=== PATIENT | male | born 1975 | race Two or more races ===

== ENCOUNTER 2017-12-02 05:13 | Day surgery (SDC) | payer OTHER ==
[2017-12-02] VITALS (13 sets, daily range): BP systolic 90–109; BP diastolic 47–71
[~2017-12-02] VITALS: Ht 182.9 cm; Wt 80.3 kg
[~2017-12-02 05:13] MED LIST: FISH OIL CAP1000 MG ORAL; GARLIC1 EAC1 PO; MULTIVITAMINS1 EAC2 ORAL; TRUVADA 200 MG1 EAC1 ORAL; [UNRECOGNIZED DRUG - REMARK]
[2017-12-02] MEDS ORDERED: ceFAZolin 1gm in D5W 55ml IVP ONE (06:00)
[2017-12-02] MEDS ORDERED: celeBREX 200mg Cap **SURGERY PATIENTS ONLY ORAL ONE (06:00)
[2017-12-02] MEDS ORDERED: oxyCONTIN 20mg tab ORAL ONE (06:00)
[2017-12-02] MEDS ORDERED: Ropivacaine 5mg/ml Vial 30ml INJ ONE (06:38)
--- NOTE | 2017-12-02 06:54 | Pre-Procedure Note/Attestation ---
Pre-Procedure Note/Attestation Complete Prior to Procedure Planned Procedure: left Procedure Narrative: left shoulder scope, sad, tiny august Indications for Procedure Pre-Operative Diagnosis: left shoulder impingement Attestation I attest that I discussed the nature of the procedure; its benefits; risks and complications; and alternatives (and the risks and benefits of such alternatives ), prior to the procedure, with the patient (or the patient's legal sales representative supervisor). I attest that, if there was a reasonable possibility of needing a blood transfusion, the patient (or the patient's legal sales representative supervisor) was given the [facility] standardized written summary, pursuant to the [place] Blood Safety Act ([place] Health and Safety Code # 1645, as amended). I attest that I re-evaluated the patient just prior to the surgery and that there has been no change in the patient's H&P, except as documented below:none GIA MANCERA Dec 02, 2017 06:54
[2017-12-02] MEDS ORDERED: Ketorolac 30mg Inj ONE (07:00)
[2017-12-02] MEDS ORDERED: Midazolam 2mg/2ml Inj ONE (07:00)
[2017-12-02] MEDS ORDERED: Glycopyrrolate 0.2mg/ml 1ml Vial ONE (07:00)
[2017-12-02] MEDS ORDERED: fentaNYL 100 mcg/2 mL IV ONE (07:00)
[2017-12-02] MEDS ORDERED: NS Irrig 4000ml IRRIG ONE (07:00)
[2017-12-02] MEDS ORDERED: Propofol 200mg/20ml IV ONE (07:00)
[2017-12-02] MEDS ORDERED: Sterile Water Irrig 1000ml IRRIG ONE (07:00)
[2017-12-02] MEDS ORDERED: Zemuron 50mg/5ml Inj IV ONE (07:00)
[2017-12-02] MEDS ORDERED: Succinylcholine 20mg/ml 10ml vial ONE (07:00)
[2017-12-02] MEDS ORDERED: LR 1000ml ONE (07:00)
[2017-12-02] MEDS ORDERED: Lidocaine 1% MPF 10mg/ml 5ml ONE (07:00)
[2017-12-02] MEDS ORDERED: LR 1000ml 1,000 ML IVLG SCH (08:13)
--- NOTE | 2017-12-02 08:13 | Anethesia Preoperative Eval ---
Anesthesia Pre-op PMH/ROS General Date of Evaluation: Dec 02, 2017 Time of Evaluation: 07:02 Anesthesiologist: Boom ASA Score: ASA 2 Mallampati Score Class I : Soft palate, uvula, fauces, pillars visible Class II: Soft palate, uvula, fauces visible Class III: Soft palate, base of uvula visible Class IV: Only hard plate visible Mallampati Classification: Class II Surgeon: Georgette Diagnosis: L shoulder pain Surgical Procedure: L shoulder scope Anesthesia History: none Family History: no anesthesia problems Allergies: Coded Allergies: No Known Allergies (Unverified , 11/27/17) Medications: see eMAR Past Medical History Cardiovascular: Denies: HTN, CAD, MS, valve dz, arrhythmia, other Pulmonary: Denies: asthma, COPD, [place], other Gastrointestinal/Genitourinary: Reports: GERD - mild, Denies: CRI, ESRD, other Neurologic/Psychiatric: Denies: dementia, CVA, depression/anxiety, TIA, other Endocrine: Denies: DM, hypothyroidism, steroids, other HEENT: Denies: cataract (L), cataract (R), glaucoma, [place] (L), [place] (R), other Hematology/Immune: Denies: anemia, DVT, bleeding disorder, other Musculoskeletal/Integumentary: Denies: OA, RA, DJD, DDD, edema, other PMH Narrative: as above PSxH Narrative: septoplasty Anesthesia Pre-op Phys. Exam Physician Exam Last Vital Signs Date Time Temp Pulse Resp B/P (MAP) Pulse Ox O2 Delivery O2 Flow Rate FiO2 18 05:55 97.1 61 18 106/61 100 Room Air Constitutional: NAD Neurologic: CN 2-12 intact Cardiovascular: RRR, no M/R/G Respiratory: CTA Gastrointestinal: S/NT/ND Airway Exam Mallampati Score: Class II MO: full Neck: flexible ROM: full Teeth: intact Dentures: no upper, no lower Anesthesia Pre-op A/P Labs see chart Studies Pre-op Studies: EKG - NSR Risk Assessment & Plan Assessment: ASA 2 Plan: GA with ETT L brachial plexus block for postoperative pain control Status Change Before Surgery: No Pre-Antibiotics Drug: Ancef 2 gr. Given Within 1 Hr of Incision: Yes Time Given: 07:34 CHICA NIX M.D. Dec 02, 2017 08:13
[2017-12-02] MEDS ORDERED: Midazolam 2mg/2ml Inj IVP PRN (08:15)
[2017-12-02] MEDS ORDERED: Metoclopramide 10mg/2ml Inj IVP PRN (08:15)
[2017-12-02] MEDS ORDERED: Ketorolac 30mg Inj IV PRN (08:15)
[2017-12-02] MEDS ORDERED: Hydromorphone 0.5mg/0.5ml inj IVP PRN (08:15)
[2017-12-02] MEDS ORDERED: Meperidine 50mg/ml Inj(FOR RIGORS ONLY) IV PRN (08:15)
[2017-12-02] MEDS ORDERED: DiphenhydrAMINE 50mg/ml Inj IVP PRN (08:15)
--- NOTE | 2017-12-02 08:50 | Brief Operative Note ---
Immediate Post Operative Note Operative Note Chief Complaint: left shoulder impingement Pre-op Diagnosis: left shoulder impingement Procedure: left shoulder scope, labral repair, sad, mini mariangel Post-op Diagnosis: same as pre-op Findings: consistent w/pre-op dx studies Surgeon: md kaitlyn Pattern Maker: justice mitchell Anesthesiologist: md shana Anesthesia: general, regional Specimen: none Complications: none Condition: stable Fluids: ns Estimated Blood Loss: minimal Drains: none Implant(s) used?: Yes EARLENE MITCHELL Dec 02, 2017 08:50
--- NOTE | 2017-12-02 09:09 | Immediate Post-Op Evaluation ---
Immediate Post-Op Evalulation Immediate Post-Op Evalulation Procedure: L shoulder scope labrum repair Date of Evaluation: Dec 02, 2017 Time of Evaluation: 09:08 IV Fluids: 1000 Blood Products: none Estimated Blood Loss: min Urinary Output: none Blood Pressure Systolic: 94 Blood Pressure Diastolic: 56 Pulse Rate: 49 Respiratory Rate: 20 O2 Sat by Pulse Oximetry: 99 Temperature (Fahrenheit): 97.6 Pain Score (1-10): 1 Nausea: No Vomiting: No Complications none Patient Status: reacts, patent, extubated, none Hydration Status: adequate CHICA NIX M.D. Dec 02, 2017 09:09
--- NOTE | 2017-12-02 11:01 | 48 Hour Post Anesthesia Eval ---
Post Anesthesia Evaluation Procedure: L shoulder scope labrum repair Date of Evaluation: Dec 02, 2017 Time of Evaluation: 10:59 Blood Pressure Systolic: 108 0: 56 Pulse Rate: 72 Respiratory Rate: 20 Temperature (Fahrenheit): 97.6 O2 Sat by Pulse Oximetry: 98 Airway: patent Nausea: No Vomiting: No Pain Intensity: 2 Hydration Status: adequate Cardiopulmonary Status: stable Mental Status/LOC: patient returned to baseline Follow-up Care/Observations: n/a Post-Anesthesia Complications: none Follow-up care needed: ready to discharge CHICA NIX M.D. Dec 02, 2017 11:01
[2017-12-02] MEDS ORDERED: Tylenol #3 tab (300mg/30mg) ORAL PRN (15:01)
[2017-12-02] MEDS ORDERED: Norco 5mg/325mg tab ORAL PRN (15:01)
[2017-12-02] MEDS ORDERED: Hydromorphone 0.5mg/0.5ml inj SUBQ PRN (15:01)
[2017-12-02] MEDS ORDERED: D5 1/2NS 1,000 ML IV SCH (15:01)
--- NOTE | 2017-12-02 17:15 | Operative Note - Dictated ---
DATE OF OPERATION: 12/02/2016 PREOPERATIVE DIAGNOSES: 1. Left shoulder subacromial impingement. 2. Left shoulder acromioclavicular joint bone spur causing secondary impingement. POSTOPERATIVE DIAGNOSES: 1. Left shoulder 1 x 1.5 cm of full-thickness chondral damage on the central portion of the humeral head with exposed bone with unstable chondral edges. 2. Multiple loose fragments, left shoulder, measuring 5 to 7 mm. 3. Left shoulder anterior labral tearing measuring 1.5 cm, unstable, with some secondary instability. 4. Left shoulder subacromial impingement. 5. Left shoulder acromioclavicular joint bone spur causing secondary impingement. PROCEDURES: 1. Left shoulder arthroscopy and extensive intra-articular shaving. 2. Left shoulder with resection of multiple loose fragments of cartilage floating around the shoulder measuring 5 to 7 mm. 3. Left shoulder humeral head chondroplasty with abrasion chondroplasty to create bleeding surfaces. 4. Left shoulder anterior inferior labral repair using single Biomet 1.5 mm JuggerKnot anchor. 5. Left shoulder subacromial bursoscopy with bursectomy and subacromial decompression. 6. Left shoulder mini Inocente procedure (resection of inferior 30% of distal clavicle for coplaning). SURGEON: Lakhwinder Banerjee M.D. AGRICULTURAL AND FORESTRY SUPERVISOR: Chari Lopez PA-C Tarper was present during the actual operative portion of the case and was important and essential part of the operation. During the operation, the assistant speech language pathologist held and operated the arthroscopic camera for visualization, assisted by manipulating the arm to help with visualization, and helped with essential parts of the repair process as necessary such as operating surgical instruments under surgeon supervision, suture management, and wound closures. ANESTHESIOLOGIST: Siva Nur M.D. ANESTHESIA: General LMA anesthesia. EBL: Less than 20 mL. COMPLICATIONS: None. SURGICAL INDICATION: Patient is a 42-year-old male who sustained the above injury to his. The patient was treated non-operative initially, but this did not alleviate the patients symptoms. Therefore, after discussing all non-surgical and surgical options, and discussing all foreseeable risk and benefits of surgery, the patient opted for surgical treatment as described above. PATIENT POSITIONING: Patient was brought to the operating room table and was placed on the operating room table. All pressure points were well padded. General anesthesia was induced and patient was then placed in the lateral decubitus position. All pressure points were well padded again and an axillary roll was placed. Patient shoulder was then prepped and draped in the usual sterile fashion. Time out was performed and the appropriate preoperative antibiotic was given by the anesthesiologist. EXAMINATION OF SHOULDER UNDER ANESTHESIA: The shoulder was examined under anesthesia with all muscles well relaxed. The shoulder was forward flexed, abducted and was placed through full range of external and internal rotation. The anterior, posterior, and inferior stability of the shoulder was checked. The exam revealed no evidence of adhesive capsulitis. There was some mild instability anterior inferiorly. PORTAL PLACEMENT: The posterior portal was established 2 cm inferior and 1 cm medial to the edge of the posterior acromion. 1 cm skin incision was made using an eleven blade and using the blunt obturator, the cannula was gently placed through the capsule. The midglenoid portal was established just lateral to the coracoid process under direct visualization. Direction of the cannula was first established using a spinal needle, and subsequently, the cannula was placed through the capsule with a blunt obturator. The anterior superior cannula was established under direct visualization off the anterior lateral edge of the acromion and just anterior to the biceps tendon through the rotator interval. The directional of cannula was first established using a spinal needle, and subsequently, the cannula was placed through the capsule with a blunt obturator. DIAGNOSTIC ARTHROSCOPY: The biceps tendon was probed and pulled through the joint for visualization. It appeared normal. The biceps anchor was palpated with a probe and was visualized. It appeared well attached and there was no evidence of SLAP tear. The posterior labrum and axillary recess was visualized. There was some loose fragment in axillary recess measuring 5 to 7 mm. These were pieces of cartilage floating around. The posterior labrum had some fraying in it. The glenoid articular surface was visualized and it appeared normal. The articular surface of the rotator cuff was visualized and probed next. There was no evidence of articular sided rotator cuff tear extending from the supraspinatus back to the posterior cuff. The Humeral head articular surface was then visualized. There was a chondral damage over the humeral head in the central portion measuring 1 x 1.5 cm. This was a full-thickness chondral damage with exposed bone. The edges of the lesion had unstable chondral fragments. Next the anterior labrum, middle gleno-humeral ligament, subscapularis tendon, and the anterior inferior gleno-humeral ligament were evaluated. The middle glenohumeral ligaments and subscapularis were intact; however, the anterior inferior glenohumeral ligament and labrum had a detachment from glenoid with a 1 cm labral tear, which was unstable. This caused instability of the humeral head. At this point, the scope was moved to the midglenoid portal and the posterior structures including the posterior labrum, posterior capsule and posterior cuff were visualized. These structures were completely normal. The subscapularis recess was devoid of any loose bodies and the anterior capsule was well attached to the humeral neck. The middle and anterior inferior glenohumeral ligament was visualized. Again, there was evidence of anterior labral tearing as described. OPERATIVE DEBRIDEMENTS AND REPAIR: Care was given to all partial thickness tears and frayed structures in the shoulder joint. The frayed rotator cuff and labrum was debrided using a shaver initially through the anterior portal and subsequently through the posterior portal to complete the debridement. This allowed for smooth debridement of all affected structures and all loose fragments were removed. At this point, care was given to multiple loose fragments, which were removed one by one. These were resected. Care was given to the anterior labral tear. At edge of the labral tear was debrided. The exposed bone was visualized. A shaver was placed into the torn lesion and the bone was abraded to a bleeding surface. Once this was completed, a curved Biomet guide was placed in and drilling of the glenoid was performed and a 1.5 mm glenoid JuggerKnot anchor was placed in without any complication. The anchor was then pulled back and was set in. This provided excellent stability of the anchor. At this point, using the [employer] passers, the labrum was then repaired back in a pinch-tuck technique by doing anterior inferior capsular shift onto the glenoid surface using the anchor. The suture was passed and the suture was secured using SMC knot following by 3 half hitches. This provided excellent stability of the anterior-inferior labrum, and the labrum was repaired in this fashion. A capsular shift was performed as part of this repair. At this point, the care was given to the humeral head. There were unstable chondral edges on the humeral head. This area was debrided and shaved to a stable zone superiorly, inferiorly, anterior and posteriorly so that all edges were stabilized and there was stable adherent cartilage. An abrasion chondroplasty was then performed to create some bleeding surface on the humeral head to provide some fibrocartilage regeneration. At this point, care was given to the subacromial space. DIAGNOSTIC BURSASCOPY AND SUBACROMIAL DECOMPRESSION: The subacromion bursa was entered from the posterior portal. The anterior portal was established under the CA ligament using a switching stick. Subacromial arthroscopy was initiated. There was extensive bursitis and thickened and inflamed bursa tissue present. The CA ligament appeared to be scuffed and frayed. The shaver was placed through the anterior cannula and debridement of the hypertrophic bursa tissue was accomplished. Once visualization was adequate, a lateral portal was established using a blunt trochar in the mid portion of the acromion bone in the anterior-posterior direction and approximately 2 cm lateral to the lateral edge of the acromion. Using combination of shaver and electrocautery the CA ligament was released from the undersurface of the acromion and a complete bursectomy was accomplished. At this point, a subacromial decompression was performed using a laxmi initially taking off 5-8 mm of the anterolateral edge of the acromion from the lateral portal and viewing from the posterior portal. Then the lateral border of the undersurface of the acromion was decompressed to the same dept as the anterolateral edge. A posterior trough was then created in the acromion in line with the posterior edge of the clavicle. At this point, the scope was placed in the lateral portal and the subacromial decompression was performed from the posterior portal decompressing the undersurface of the acromion to dept of 5-8 mm. The decompression was performed anterior to the previously marked trough all the way medially to the level of the AC joint. At all times, care was given not to take off too much bone in order to avoid risk of fracture of the acromion. An excellent subacromial decompression was performed in this fashion. At this point, the bursal side of the rotator cuff was examined. All the bursa over the rotator cuff was removed and the rotator cuff was examined with a probe. The arm was placed into external rotation, neutral, and then internal rotation and there was no evidence of tear of the rotator cuff. The scope was then placed in the posterior portal and the subacromial decompression was rechecked to assure there is no area of bone spur that would be still impinging onto the rotator cuff. EVALUATION OF DISTAL CLAVICLE AND DISTAL CLAVICLE RESECTION: Care was given to the distal end of the clavicle. Using electrocautery and domenico, the distal end of the bursa and soft tissue around the distal end of the clavicle was debrided and cleaned. Care was given not to inflict excessive trauma to the ligaments of the AC joint. The distal end of the clavicle appeared to have an inferior osteophyte extending down well bellow the level of the acromion at the level of the AC joint. This appeared to be impinging onto the supraspinatus muscle belly and the musculotendinous junction of the rotator cuff. A mini-Inocente procedure was performed by using a laxmi to resect the inferior 30% of the distal end of the clavicle. This decompression allowed space for the inferior structures to slide without impingement. This co-plained the inferior edge of the distal clavicle with the inferior edge of the acromion. CONDITION AT DISCHARGE FROM OPERATING ROOM: The skin was re-approximated and sterile dressing and sling were applied. All lap counts and instrument counts were correct. Patient tolerated the procedure well without complications and was taken to the recovery room in stable conditions. Lakhwinder Banerjee M.D. DR: FRANCISCA JOB#: [id number] CC:
--- NOTE | 2017-12-03 16:19 | Cardiology Report ---
APPROVED REPORT EKG Measurement Heart [id number] Sinus bradycardia Otherwise normal ECG
== END 2017-12-02 10:50 | disposition home or self-care (01) ==
LOC: SUR 05:13
DX: M75.42 Impingement syndrome of left shoulder (principal); S43.402A Unspecified sprain of left shoulder joint, initial encounter; R00.1 Bradycardia, unspecified; K21.9 Gastro-esophageal reflux disease without esophagitis; X58.XXXA Exposure to other specified factors, initial encounter; Y93.9 Activity, unspecified; Y92.9 Unspecified place or not applicable
CPT/HCPCS: 29824; 29826; 93005; J0330; J0690; J1885; J2250; J2405; J2704; J2795; J3010; J7120; 94003; 94150; C1713